=== PATIENT | male | born 1995 | race Caucasian/White ===

== ENCOUNTER 2017-12-21 00:35 | Emergency (ER) | payer OTHER ==
[~2017-12-21] VITALS: Ht 198.1 cm; Wt 112.6 kg
[2017-12-21 00:44] VITALS: TEMP 36.9; Ht 198.1 cm; Wt 112.6 kg
--- NOTE | 2017-12-21 01:07 | EMERGENCY ROOM VISIT NOTE ---
History Report prepared by Evelyn: Krystian Yin Under the Supervision of: Dr. Elyse Fang D.O. First contact with patient: 00:49 Chief Complaint: HAND PAIN/INJURY Stated Complaint: RIGHT HAND PAIN History of Present Illness The patient is a 22 year old male who presents to the Emergency Room with complaints of constant right hand pain beginning yesterday at 2230. The patient states that he injured his right hand last night playing baseball. He notes that he was hitting and was hit in the right hand by the pitch. He rates his pain as a 7/10. He denies any elbow pain and shoulder pain. He reports that he is right handed. Source of History: patient Onset: yesterday at 2230 Position: hand (right) Symptom Intensity: 7/10 Timing: constant Note: He denies any elbow pain and shoulder pain. Review of Systems The patient was struck in the hand by a thrown ball. He denies any other injury. Past Medical & Surgical Medical Problems: (1) No chronic problems Family History No pertinent family history stated. Social History Smoking Status: Never Smoker Marital Status: single Occupation Status: employed Current/Historical Medications No Active Prescriptions or Reported Meds Allergies Coded Allergies: No Known Allergies (Unverified , 12/21/17) Physical Exam Vital Signs Date Time Temp Pulse Resp B/P (MAP) Pulse Ox O2 Delivery O2 Flow Rate FiO2 12/21/17 02:09 67 18 134/64 98 12/21/17 00:44 36.9 84 18 /143 96 Room Air Physical Exam Extremities: No evidence of cyanosis or clubbing. There are easily palpable peripheral pulses. Dorsal aspect of right hand has significant edema over 2nd, 3rd, and 4th metacarpals, pain to palpation in that area. No pain over anatomical snuff box, good radial pulse. Left upper extremity is unremarkable. Skin: warm and dry with good turgor and no rashes. Medical Decision & Procedures ER Provider Diagnostic Interpretation: Radiology results as stated below per my review and interpretation: RIGHT HAND X-RAY: The proximal third metacarpal is mildly displaced. ED Course 0102: The patient was evaluated in room A3. A focused history and physical exam was performed. The patient declined wanting anything for pain. He went for plain x-rays of the right hand as described above. 0137: I reevaluated and updated the patient. The ER order entry technician is putting him in a volar splint. I showed him his X-RAY and we will make a copy of his X-RAY for his [place] doctor. He has an appointment tomorrow with Dr. Chun. 0158: Upon reevaluation, the patient is stable. He has good sensation and good capillary refill after placement of the splint. I discussed findings and results with him. He verbalized agreement of the treatment plan. The patient was discharged home. Medical Decision The patient is a 22 year old male who presents to the Emergency Room with complaints of constant right hand pain beginning yesterday at 2230. Differential diagnoses include: hand contusion and hand fracture. The patient was struck in the right hand with a thrown baseball pitch. He has a fracture of the shaft of the third proximal metacarpal. He was placed into Ortho-Glass splint material will be seen in the morning by Dr. Chun from orthopedic surgery. Medication Reconcilliation Current Medication List: was personally reviewed by me Blood Pressure Screening Patient's blood pressure: Elevated blood pressure Blood pressure disposition: Elevated BP felt to be situational Impression Primary Impression: Fracture of third metacarpal bone of right hand Scribe Attestation The scribe's documentation has been prepared under my direction and personally reviewed by me in its entirety. I confirm that the note above accurately reflects all work, treatment, procedures, and medical decision making performed by me. Departure Information Dispostion Home / Self-Care Prescriptions No Active Prescriptions or Reported Meds Referrals No Doctor, Assigned (PCP) Forms HOME CARE DOCUMENTATION FORM, IMPORTANT VISIT INFORMATION Patient Instructions My [facility] Additional Instructions Wear splint until follow up with Dr. Chun. Rest with your hand elevated and iced. tylenol for pain Problem Qualifiers Primary Impression: Fracture of third metacarpal bone of right hand Encounter type: initial encounter Fracture type: closed Metacarpal location : shaft Fracture alignment: nondisplaced Qualified Codes: S62.352A - Nondisplaced fracture of shaft of third metacarpal bone, right hand, initial encounter for closed fracture
[2017-12-21 02:09] VITALS: BP 134/64; PULSE 67; O2SAT 98
--- NOTE | 2017-12-21 06:47 | DIAGNOSTIC IMAGING REPORT ---
R HAND MIN 3 VIEWS ROUTINE CLINICAL HISTORY: Right hand pain status post trauma COMPARISON: None. DISCUSSION: There is an oblique fracture involving the midshaft of the third metacarpal. There is 3 mm of dorsal displacement of the distal fragment. There is minimal vertex dorsal angulation at the fracture site. There is no dislocation. No additional fractures are visualized. IMPRESSION: Acute fracture involving the midshaft of the third metacarpal. Electronically signed by: Tae Goodman M.D. 12/21/2017 6:46 AM Dictated Date/Time: 12/21/2017 6:45 AM
== END 2017-12-21 02:11 | disposition home or self-care (01) ==
LOC: C.EDB 00:36 → C.EDA 02:11
DX: S62.352A Nondisplaced fracture of shaft of third metacarpal bone, right hand, initial encounter for closed fracture (principal); W21.03XA Struck by baseball, initial encounter; Y93.64 Activity, baseball